=== PATIENT | male | born 1965 | race Caucasian/White ===

== ENCOUNTER 2017-08-07 18:35 | Emergency (ER) | payer SELFPAY | END 2017-08-07 19:26 | disposition home or self-care (01) | LOC: D.ER 18:35 | DX: S01.81XA Laceration without foreign body of other part of head, initial encounter (principal); W26.9XXA Contact with unspecified sharp object(s), initial encounter; Y93.89 Activity, other specified; Y92.89 Other specified places as the place of occurrence of the external cause ==